=== PATIENT | female | born 1960 | race Caucasian/White ===

== ENCOUNTER 2018-04-22 15:11 | Observation (INO) ==
[2018-04-22] MEDS ORDERED: 0.9 % Sodium Chloride 500 ML IVC ONE (15:21)
[2018-04-22] MEDS ORDERED: Aspirin 81 MG TAB.CHEW PO ONE (15:21)
--- NOTE | 2018-04-22 15:35 | Emergency Department Note ---
Disposition Clinical Impression: Chest pain, Pulmonary nodules Disposition: Admitted As Inpatient Condition: Fair Chest Pain HPI - General Stated Complaint: CP Time Seen by Provider: 04/22/18 15:14 Source: patient, EMS Limitations: no limitations Vital Signs Reviewed: Yes Nursing Notes Reviewed: Yes - History of Present Illness HPI Narrative: 50-year-old female presents from home via EMS for evaluation of chest pain. Onset 9am this AM; appx 6hrs prior to arrival. Described as subxiphoid, dull, heaviness. Nonradiating. Associated with intermittent dyspnea. She had similar symptoms "years" ago with no subsequent cardiac etiology on workup at that time. PMH: Hypertension, hyperlipidemia, diabetes type 2 on metformin. Patient notes she is been noncompliant with her medications she has not seen a physician for quite some time secondary to lack of insurance. She also notes that she is under increased stress between her own health as well as caring for her mother who has recently become ill. ROS: Excellent positive: As above Negative: Fever, chills, nausea, vomiting, diaphoresis, unusual back pain, numbness/weakness/heaviness of any extremities. Severity scale (1-10): 8 - Related Data Home Medications Medication Instructions Recorded Confirmed No Known Home Drugs 04/22/18 04/22/18 Allergies Allergy/AdvReac Type Severity Reaction Status Date / Time No Known Allergies Allergy Verified 03/11/18 10:30 Chest Pain PMH - Past Medical History Medical history: Reports: diabetes, GERD, hyperlipidemia, hypertension - Social History Smoking Status: Current every day smoker Alcohol use: Reports: none Drug use: Reports: none Physical Exam - General Limitations: no limitations General appearance: alert, in no apparent distress Course Course Narrative: EKG dated 04/22/2018 at 15:16 interpreted as sinus rhythm with rate of 82. VT 160. QRS 98. QTC 435. Normal axis. Nonspecific ST-T changes. 1 mm Q waves present in leads 2, 3, aVF. Compared to previous EKG dated 05/31/20 showing no acute ischemic changes in comparison. 25 point systolic difference in BP of UE. Will CTA chest for evaluation of potential dissection. Patient's symptoms improved from 8-9/10 to 3/10 after single SL nitroglycerin. EKG shows no acute ischemic changes. Chest x-ray is unremarkable. Serum hematology is unremarkable. Serum chemistries unremarkable; initial troponin is normal. Discussed the above the admitting hospitalist who agrees to set the patient her chest pain rule out ACS. CT chest unremarkable for PE or aortic abnormalities. Multiple nodules were noted. Patient had a regarding for this time; I was unable to discuss these nodules with her. Chest X-Ray 04/22/18 15:21 IMPRESSION: No acute process. D/ / 04/22/2018 17:25:10 Jorge Short MD / Caroline Angeles Interpreting Provider: Jorge Short MD Chest CTA 04/22/18 16:17 IMPRESSION: No findings diagnostic of pulmonary embolus. Detail is limited due to suboptimal timing of the bolus and artifact. Multiple calcified granuloma are noted. Numerous additional small noncalcified nodules are also noted. These are likely noncalcified granulomas. However, follow-up is recommended. CT chest in 6-12 months is recommended. RECOMMENDATIONS: Fleischner Society guidelines for follow-up and management of incidentally detected pulmonary nodules: Single Solid Nodule: Nodule size less than 6 mm In a low-risk patient, no routine follow-up. In a high-risk patient, optional CT at 12 months. Nodule size equals 6-8 mm In a low-risk patient, CT at 6-12 months, then consider CT at 18-24 months. In a high-risk patient, CT at 6-12 months, then CT at 18-24 months. Nodule size greater than 8 mm In a low-risk patient, consider CT at 3 months, PET/CT, or tissue sampling. In a high-risk patient, consider CT at 3 months, PET/CT, or tissue sampling. Multiple Solid Nodules: Nodule size less than 6 mm In a low-risk patient, no routine follow-up. In a high-risk patient, optional CT at 12 months. Nodule size equals 6-8 mm In a low-risk patient, CT at 3-6 months, then consider CT at 18-24 months. In a high-risk patient, CT at 3-6 months, then CT at 18-24 months. Nodule size greater than 8 mm In a low-risk patient, CT at 3-6 months, then consider CT at 18-24 months. In a high-risk patient, CT at 3-6 months, then CT at 18-24 months. - Low risk patients include individuals with minimal or absent history of smoking and other known risk factors. - High risk patients include individuals with a history or smoking or known risk factors. Radiology 2017 http://pubs.rsna.org/doi/full/10.1148/radiol.9264840791 D/ / Jeremías Dietrich / Jeremías Dietrich Interpreting Provider: Jeremías Dietrich Vital Signs Temperature 98.3 F 04/22/18 15:16 Pulse Rate 85 04/22/18 15:16 Respiratory Rate 18 04/22/18 15:16 Blood Pressure 155/94 04/22/18 15:16 O2 Sat by Pulse Oximetry 97 04/22/18 15:16 Temperature 97.9 F 04/22/18 19:14 Pulse Rate 73 04/22/18 19:14 Respiratory Rate 16 04/22/18 19:14 Blood Pressure 151/83 04/22/18 19:14 O2 Sat by Pulse Oximetry 96 04/22/18 19:14 Oxygen Delivery Oxygen Delivery Room Air Chest Pain - Lab Data Result diagrams: 04/22/18 15:31 04/22/18 15:31 Lab Results 04/22/18 04/22/18 04/22/18 Range/Units 15:21 15:31 15:31 WBC 6.0 (4.3-11.1) K/mcL RBC 5.21 H (3.82-4.97) M/mcL Hgb 15.5 H (11.5-15.4) g/dL Hct 46.0 H (35.3-44.9) % MCV 88.3 (83.0-100.0) fL MCH 29.8 (28.0-33.3) pg MCHC 33.7 (31.6-35.5) g/dL RDW 12.3 (11.5-14.5) % Plt Count 218 (140-400) K/mcL MPV 9.8 (9.4-12.4) fL Immature Gran % 0.2 (0-4) % Seg Neutrophils % 50.1 % Lymphocytes % 41.5 % Monocytes % 6.0 % Eosinophils % 1.7 % Basophils % 0.5 % Neutrophils # 3.0 (1.6-8.9) K/mcL Lymphocytes # 2.5 (0.6-4.6) K/mcL Monocytes # 0.4 (0.0-1.3) K/mcL Eosinophils # 0.1 (0.0-0.6) K/mcL Basophils # 0.0 (0.0-0.2) K/mcL PT 10.2 (9.4-12.1) Seconds INR 0.9 APTT 30.8 (26.0-36.0) Seconds Sodium 135 L (136-145) mEq/L Potassium 3.9 (3.5-5.1) mEq/L Chloride 102 (98-107) mEq/L Carbon Dioxide 28 (23-29) mEq/L BUN 12 (6-20) mg/dL Creatinine 0.67 (0.60-1.20) mg/dL Est GFR ( Amer) > 60 (> 60) Est GFR (Non-Af Amer) > 60 (> 60) BUN/Creatinine Ratio 18 (6-26) Glucose 210 H (70-105) mg/dL Calculated Osmolality 286 (280-300) Calcium 9.4 (8.6-10.3) mg/dL Total Bilirubin 0.4 (0.3-1.0) mg/dL Direct Bilirubin 0.1 (0.0-0.2) mg/dL Indirect Bilirubin 0.3 (0.0-1.2) mg/dL AST 12 L (13-39) Units/L ALT 12 (7-52) Units/L Alkaline Phosphatase 69 (34-104) Units/L Troponin I < 0.03 (< 0.04) ng/mL Serum Total Protein 6.4 (6.4-8.9) g/dL Albumin 3.8 (3.5-5.7) g/dL Globulin 2.6 (2.4-3.5) g/dL Albumin/Globulin Ratio 1.5 (1.1-2.2) Lipase 18 (11-82) Units/L Heart Score - Score History: Moderately Suspicious EKG: Normal Age: 45-65 Risk Factors: Equal/Greater than 3 risk factor or history of atherosclerotic disease Troponin: Less than normal limit HEART Score Total: 4 Attestation Statement - Attestation Attestation: I, Al Hennessy DO, examined this patient [id number] and my medical decision-making was reviewed with Dr. Gordy Cordero, Resident Physician. I agree with the documented findings, disposition and treatment plan as described except to the extent set forth below. Please see my progress notes for details.
--- NOTE | 2018-04-22 15:35 | Emergency Department Note ---
Disposition Clinical Impression: Chest pain Disposition: Admitted As Inpatient Condition: Fair Time of Disposition: 18:37 General Adult HPI - General Chief complaint: ED Chest Pain Stated complaint: CP Time Seen by Provider: 04/22/18 15:14 Source: patient, EMS Limitations: no limitations - History of Present Illness Pain Scale: 8 - Related Data Home Medications Medication Instructions Recorded Confirmed No Known Home Drugs 04/22/18 04/22/18 Allergies Allergy/AdvReac Type Severity Reaction Status Date / Time No Known Allergies Allergy Verified 03/11/18 10:30 Past Medical History - Past Medical History Medical history: Reports: diabetes, GERD, hyperlipidemia, hypertension - Social History Smoking Status: Current every day smoker Smokeless Tobacco Status: No Alcohol use: Reports: none Drug use: Reports: none Physical Exam - General Limitations: no limitations General appearance: alert, in no apparent distress Course Vital Signs Temperature 98.3 F 04/22/18 15:16 Pulse Rate 85 04/22/18 15:16 Respiratory Rate 18 04/22/18 15:16 Blood Pressure 155/94 04/22/18 15:16 O2 Sat by Pulse Oximetry 97 04/22/18 15:16 Temperature 98.3 F 04/22/18 15:16 Pulse Rate 75 04/22/18 17:15 Respiratory Rate 18 04/22/18 15:56 Blood Pressure 123/74 04/22/18 16:01 O2 Sat by Pulse Oximetry 99 04/22/18 17:15 Oxygen Delivery Oxygen Delivery Room Air Medical Decision Making - Lab Data Result diagrams: 04/22/18 15:31 04/22/18 15:31 Lab Results 04/22/18 04/22/18 04/22/18 Range/Units 15:21 15:31 15:31 WBC 6.0 (4.3-11.1) K/mcL RBC 5.21 H (3.82-4.97) M/mcL Hgb 15.5 H (11.5-15.4) g/dL Hct 46.0 H (35.3-44.9) % MCV 88.3 (83.0-100.0) fL MCH 29.8 (28.0-33.3) pg MCHC 33.7 (31.6-35.5) g/dL RDW 12.3 (11.5-14.5) % Plt Count 218 (140-400) K/mcL MPV 9.8 (9.4-12.4) fL Immature Gran % 0.2 (0-4) % Seg Neutrophils % 50.1 % Lymphocytes % 41.5 % Monocytes % 6.0 % Eosinophils % 1.7 % Basophils % 0.5 % Neutrophils # 3.0 (1.6-8.9) K/mcL Lymphocytes # 2.5 (0.6-4.6) K/mcL Monocytes # 0.4 (0.0-1.3) K/mcL Eosinophils # 0.1 (0.0-0.6) K/mcL Basophils # 0.0 (0.0-0.2) K/mcL PT 10.2 (9.4-12.1) Seconds INR 0.9 APTT 30.8 (26.0-36.0) Seconds Sodium 135 L (136-145) mEq/L Potassium 3.9 (3.5-5.1) mEq/L Chloride 102 (98-107) mEq/L Carbon Dioxide 28 (23-29) mEq/L BUN 12 (6-20) mg/dL Creatinine 0.67 (0.60-1.20) mg/dL Est GFR ( Amer) > 60 (> 60) Est GFR (Non-Af Amer) > 60 (> 60) BUN/Creatinine Ratio 18 (6-26) Glucose 210 H (70-105) mg/dL Calculated Osmolality 286 (280-300) Calcium 9.4 (8.6-10.3) mg/dL Total Bilirubin 0.4 (0.3-1.0) mg/dL Direct Bilirubin 0.1 (0.0-0.2) mg/dL Indirect Bilirubin 0.3 (0.0-1.2) mg/dL AST 12 L (13-39) Units/L ALT 12 (7-52) Units/L Alkaline Phosphatase 69 (34-104) Units/L Troponin I < 0.03 (< 0.04) ng/mL Serum Total Protein 6.4 (6.4-8.9) g/dL Albumin 3.8 (3.5-5.7) g/dL Globulin 2.6 (2.4-3.5) g/dL Albumin/Globulin Ratio 1.5 (1.1-2.2) Lipase 18 (11-82) Units/L Attestation Statement - Attestation Attestation: I, Al Hennessy DO, examined this patient [id number] and my medical decision-making was reviewed with Dr. Gordy Cordero, Resident Physician. I agree with the documented findings, disposition and treatment plan as described except to the extent set forth below. Please see my progress notes for details. 52-year-old female presents emergency room for evaluation of chest pain. Patient woke up this morning with pain and numbness in the subxiphoid region of the epigastrium. She denies any falls trauma or injury. She has not had symptoms of been persistent like this ever in the past. She has no specific cardiac history according to her. Currently she is denying fevers chills nausea vomiting diarrhea headache vision changes. She does have intermittent chest discomfort and pain that has not been persistent since this morning. Denies any shortness of breath. Patient has not started any new medications. She has not traveled outside the country. She has not had any traumas injuries or falls. On initial presentation the patient does not appear to be any specific distress. Her vital signs are stable. She is resting comfortably in the bed she is alert she is oriented she speaks in full sentences. Her lungs are clear her heart is regular abdomen is soft nontender nondistended with no guarding no rigidity and no peritoneal symptoms. She has no point tenderness in the right upper quadrant or left upper quadrant of the abdomen. No epigastric discomfort. Patient does have swelling in the right lower extremities is asymmetric to the left but they treated this secondary to chronic knee related issues and this has been present for months. Patient has been under a great deal of stress with family related issues and initially she thought that could have been the source of the symptoms here today but it stayed and did not go away so she became concerned and decided to come to the emergency room for evaluation. Patient denies any history of cardiac disease, stenting, blood thinners. She does take several medications at home. She is otherwise asymptomatic prior to the events today. Detailed workup including CBC chemistry troponin and BNP coagulation studies were restarted this time. Aspirin nitroglycerin will be given. Chest x-ray and BNP along with urinalysis will also be resulted. Patient is otherwise clinically stable at t his time. Disposition to be determined. Clinical suspicion is that the patient will require admission will monitor closely and then determine disposition plan. Heart score is a 3 at this time based on age risk factors and presenting symptoms and complaint. See detailed documentation the physical exam, medical intervention, medical decision-making and disposition the resident physician's note. 1615 Patient is asymptomatic after 2 nitroglycerin. She does have a pulse deficit between the right upper and left upper extremities. Patient will have CT angiography the chest to rule out any vascular abnormalities or could be attributed to the symptoms here today and admission process will be established. Patient is otherwise asymptomatic at this point with stable labs 1800 CT angios the chest is unremarkable for vascular related etiology including dissection and aneurysm or pulmonary emboli. Patient will be admitted at this time for continuation of care of anginal-like presentation but responded nitroglycerin. Aspirin is at a been provided. Patient has been asymptomatic here in the emergency room. Patient will be admitted for continuation of care. Patient was accepted by the hospitalist Dr. huitron. No other recommendations or concerns noted this time. Patient is otherwise clinically stable to time of admission.
[2018-04-22] MEDS: Nitroglycerin 0.4 MG TAB.SUBL SL ONE ×2 (15:51→15:56)
[2018-04-22 15:55] LABS: Basophils % 0.5 %; Eosinophils # 0.1 K/mcL (0.0-0.6); Eosinophils % 1.7 %; Hemoglobin 15.5 g/dL (11.5-15.4); Immature Granulocytes % 0.2 % (0-4); Lymphocytes # 2.5 K/mcL (0.6-4.6); Lymphocytes % 41.5 %; Mean Corpuscular HGB Conc 33.7 g/dL (31.6-35.5); Mean Corpuscular Hemoglobin 29.8 pg (28.0-33.3); Mean Corpuscular Volume 88.3 fL (83.0-100.0); Mean Platelet Volume 9.8 fL (9.4-12.4); Monocytes # 0.4 K/mcL (0.0-1.3); Platelet Count 218 K/mcL (140-400); Red Blood Count 5.21 M/mcL (3.82-4.97); Red Cell Distribution Width 12.3 % (11.5-14.5); Segmented Neutrophils % 50.1 %
[2018-04-22 16:03] LABS: INR 0.9; Prothrombin Time 10.2 Seconds (9.4-12.1)
[2018-04-22 16:05] LABS: Activated Partial Thrombo Time 30.8 Seconds (26.0-36.0)
[2018-04-22] MEDS ORDERED: *HR* HYDROmorphone (PF) 1 MG/ML SYRINGE IVP ONE (16:08)
[2018-04-22] MEDS ORDERED: Isovue-370 500 ML INFUS..BTL IV ONE (16:17)
[2018-04-22 16:24] LABS: Alanine Aminotransferase 12 Units/L (7-52); Albumin 3.8 g/dL (3.5-5.7); Albumin/Globulin Ratio 1.5 (1.1-2.2); Alkaline Phosphatase 69 Units/L (34-104); Aspartate Amino Transferase 12 Units/L (13-39); BUN/Creatinine Ratio 18 (6-26); Bilirubin,Direct 0.1 mg/dL (0.0-0.2); Bilirubin,Indirect 0.3 mg/dL (0.0-1.2); Bilirubin,Total 0.4 mg/dL (0.3-1.0); Blood Urea Nitrogen 12 mg/dL (6-20); Calcium 9.4 mg/dL (8.6-10.3); Carbon Dioxide 28 mEq/L (23-29); Chloride 102 mEq/L (98-107); Globulin 2.6 g/dL (2.4-3.5); Glucose 210 mg/dL (70-105); Lipase 18 Units/L (11-82); Osmolality,Calculated 286 (280-300); Potassium 3.9 mEq/L (3.5-5.1); Sodium 135 mEq/L (136-145); Total Protein 6.4 g/dL (6.4-8.9); eGFR For Non-African Americans > 60 (> 60)
[2018-04-22 16:32] LABS: Troponin I < 0.03 ng/mL (< 0.04)
--- NOTE | 2018-04-22 16:57 | Internal Med History&Physical ---
<Guanakito Duke - Last Filed: 04/22/18 18:56> Date of Encounter: 04/22/18 Time of Encounter: 18:00 Internal Medicine - H&P: HPI Chief complaint: chest pain Admitted From: Emergency Dept Plans for Post Hospital Care: Home History of present illness: Ms. Paz is a 58 year old female with pmh significant for HTN, HLD, DM, current 1ppd smoker and GERD who arrived to the ED via EMS with chest pain. She describes the pain as a dull heaviness in the subxiphoid that is nonradiating and began this morning ~9am. Additionally with mild dyspnea unchanged with exertion. Symptoms improved after single sl nitro. She had similar episode years ago that was not found to be cardiac in origin during workup. She admitted to R leg pain and edema LE R>L and asymmetry in size for number of years since prior R knee surgery. She denied diplopia, blurry vision, dizzy/lightheaded, diaphoresis, pleuritic chest pain, N/V, abdominal pain, syncope hx of stents or dvt but admitted to using 2-3 pillows at night for orthopnea. She was found to have asymmetric BP in ED with 25 point difference. She states she has been under lots of stress caring for mother and has not seen pcp in over a year due to loss of insurance. Additionally, has not taken any of her previous rx due to no insurance in 1 year. Past Med Surg Social Fam HX - Past Medical History Medical history: diabetes, GERD, hyperlipidemia, hypertension - Past Surgical History Surgical History: cholecystectomy - Social History Smoking Status: Current every day smoker Smokeless Tobacco Status: No Alcohol use: none Drug use: none Internal Medicine - H&P: Meds No Known Home Drugs 04/22/18 [History] Allergy/AdvReac Type Severity Reaction Status Date / Time No Known Allergies Allergy Verified 03/11/18 10:30 All Systems PM: A 10-system review of systems was performed and is negative for pertinent findings except as documented above in the HPI. - Constitutional Constitutional: no chills, no fever(s) - EENT Eyes: no blurry vision, no diplopia Nose, mouth and throat: no nasal congestion, no sore throat - Cardiovascular Cardiovascular ROS IM: chest pain, dyspnea, edema, orthopnea, no claudication, no diaphoresis, no dyspnea on exertion, no irregular heart rhythm, no lightheadedness, no palpitations, no syncope - Respiratory Respiratory: cough, dyspnea, no dyspnea on exertion - Gastrointestinal Gastrointestinal: heartburn, no abdominal pain, no constipation, no diarrhea, no nausea, no vomiting - Musculoskeletal Musculoskeletal ROS IM: no back pain, no neck pain - Integumentary Integumentary IM: no erythema, no rash, no jaundice - Neurological Neurological ROS: no dizziness, no headache(s), no numbness, no paresthesias, no vertigo, no weakness - Psychiatric Psychiatric: anxiety - Constitutional Vitals: Temp Pulse Resp BP Pulse Ox 98.3 F 88 18 123/74 97 04/22/18 15:16 04/22/18 16:01 04/22/18 15:56 04/22/18 16:01 04/22/18 15:56 General appearance: Present: pleasant, obese. Absent: no acute distress Exam: Comfortable in bed - Head Head exam: Present: atraumatic, normal inspection, normocephalic - Eye Eye exam: Present: EOMI, normal appearance - ENT ENT exam: Present: mucous membranes moist - Neck Neck exam general surgery: Present: normal inspection, trachea midline - Respiratory Respiratory exam: Present: prolonged expiratory phase, rhonchi, wheezes. Absent: accessory muscle use, chest wall tenderness, respiratory distress - Cardiovascular Cardiovascular exam: Present: RRR, +S1, +S2. Absent: diastolic murmur, irregular rhythm, systolic murmur - GI/Abdominal GI/Abdominal exam: Present: soft. Absent: distended, firm, guarding, hepatom egaly, rebound, rigid, splenomegaly, tenderness - Extremities Exam Extremities exam: Present: normal capillary refill, pedal edema (2+ R>L), warm, radial pulses palpable and symmetrical. Absent: calf tenderness, cyanotic, normal inspection (R lower leg larger than L lower leg) - Neurological Exam Neurological exam: Present: alert, CN II-XII intact, oriented X3. Absent: speech deficit - Psychiatric Psychiatric exam: Present: normal affect, normal mood - Skin Skin exam: Present: dry, intact, normal color. Absent: abrasion, cyanosis, diap horetic, erythema, excoriation, pallor, rash Internal Med - H&P Results - Labs CBC & Chem 7: 04/22/18 15:31 04/22/18 15:31 Labs: Short CBC 04/22/18 Range/Units 15:31 WBC 6.0 (4.3-11.1) K/mcL Hgb 15.5 H (11.5-15.4) g/dL Hct 46.0 H (35.3-44.9) % Plt Count 218 (140-400) K/mcL Neutrophils # 3.0 (1.6-8.9) K/mcL BMP 04/22/18 15:31 Sodium 135 L Potassium 3.9 Chloride 102 Carbon Dioxide 28 BUN 12 Creatinine 0.67 Glucose 210 H Calcium 9.4 Cardiac Enzymes 04/22/18 Range/Units 15:31 Troponin I < 0.03 (< 0.04) ng/mL Liver Function 04/22/18 Range/Units 15:31 Total Bilirubin 0.4 (0.3-1.0) mg/dL Direct Bilirubin 0.1 (0.0-0.2) mg/dL AST 12 L (13-39) Units/L ALT 12 (7-52) Units/L Alkaline Phosphatase 69 (34-104) Units/L Albumin 3.8 (3.5-5.7) g/dL - Impressions ITS Impressions Chest X-Ray 04/22/18 15:21 IMPRESSION: No acute process. D/ / Jorge Short MD / Jorge Short MD Interpreting Provider: Jorge Short MD - Assessment and plan (1) Chest pain Current Visit: Yes Status: Acute Assessment and plan: Dull/heavy subxiphoid chest pain without radiation or associated symptoms that began 04/22/18 and was constant. Pain resolved with 1 sl nitro. Had previous cardiac workup "years" ago that was found to be not cardiac in origin. She has asymmetric leg pain/swelling R>L without prior DVT. -With her multiple risk factors cardiac origin is possible but I do not think it is cardiac at this point but will continue workup. -HEART score 4 -ECG in ED without acute st elevations/depressions, or t wave inversions -Initial troponin in ED neg will trend 2 additional. -Asa in ED, will continue asa and statin ordered -CXR neg -CTA neg for PE -Will get lipids, a1c, and ecg in the am -Will consider cards consult if pending orders indicate cardiac origin Qualifiers: Chest pain type: other chest pain Qualified Code(s): R07.89 - Other chest pain; R07.8 - Other chest pain (2) Leg swelling Current Visit: Yes Status: Acute Assessment and plan: Prior R knee operations and had increased pain and swelling of R LE > L LE -Asymmetric in size on exam R>L -No hx of DVT but multiple risk factors -Will get R LE doppler to ro DVT (3) Hypertension Current Visit: Yes Status: Acute Assessment and plan: Hx of HTN -Not on antihypertensives at home -BP 155/94 on arrival, 123/74 most recent -Will monitor Qualifiers: Hypertension type: essential hypertension Qualified Code(s): I10 - Essential (primary) hypertension (4) Diabetes mellitus Current Visit: Yes Status: Acute Assessment and plan: Hx of DM -No home meds currently. -Was previously on metformin. -Insulin naive. -Glucose on arrival 210 -a1c pending in am -Will start low SSI and monitor glucose Qualifiers: Diabetes mellitus type: type 2 Diabetes mellitus terminal operations supervisor insulin use: without terminal operations supervisor use Diabetes mellitus complication status: with unspecified complications Qualified Code(s): E11.8 - Type 2 diabetes mellitus with un specified complications (5) Asymmetric blood pressures Current Visit: Yes Status: Acute Assessment and plan: Reported asymmetric BP in ED of 25 points. -Will recheck tonight. -CTA without abnormalities in ascending aorta, no aneurysm, dissection (6) GERD (gastroesophageal reflux disease) Current Visit: Yes Status: Acute Assessment and plan: Hx of GERD. Not on meds at this time. Qualifiers: Esophagitis presence: esophagitis presence not specified Qualified Code(s): K21.9 - Gastro-esophageal reflux disease without esophagitis (7) Tobacco abuse Current Visit: Yes Status: Acute Assessment and plan: 1ppd smoker -Recommend cessation at dc (8) DVT prophylaxis Current Visit: Yes Status: Acute Assessment and plan: Subq heparin - Time Spent With Patient Total time spent is greater than 50% in coordination of care (as documented) at patient's floor/unit and/or counseling patient: <Ilana Aguirre - Last Filed: 04/22/18 19:48> Internal Medicine - H&P: HPI History of present illness: Ms. Paz is a 58 year old female Past Med Surg Social Fam HX - Additional Family History Additional family history: family history reviewed and non contributory All Systems PM: A 10-system review of systems was performed and is negative for pertinent findings except as documented above in the HPI. - Constitutional Vitals: Temp Pulse Resp BP Pulse Ox 98.3 F 75 18 123/74 99 04/22/18 15:16 04/22/18 17:15 04/22/18 15:56 04/22/18 16:01 04/22/18 17:15 Internal Med - H&P Results - Labs CBC & Chem 7: 04/22/18 15:31 04/22/18 15:31 Labs: Short CBC 04/22/18 Range/Units 15:31 WBC 6.0 (4.3-11.1) K/mcL Hgb 15.5 H (11.5-15.4) g/dL Hct 46.0 H (35.3-44.9) % Plt Count 218 (140-400) K/mcL Neutrophils # 3.0 (1.6-8.9) K/mcL BMP 04/22/18 15:31 Sodium 135 L Potassium 3.9 Chloride 102 Carbon Dioxide 28 BUN 12 Creatinine 0.67 Glucose 210 H Calcium 9.4 Cardiac Enzymes 04/22/18 Range/Units 15:31 Troponin I < 0.03 (< 0.04) ng/mL Liver Function 04/22/18 Range/Units 15:31 Total Bilirubin 0.4 (0.3-1.0) mg/dL Direct Bilirubin 0.1 (0.0-0.2) mg/dL AST 12 L (13-39) Units/L ALT 12 (7-52) Units/L Alkaline Phosphatase 69 (34-104) Units/L Albumin 3.8 (3.5-5.7) g/dL - Impressions ITS Impressions Chest X-Ray 04/22/18 15:21 IMPRESSION: No acute process. D/ / 04/22/2018 17:25:10 Jorge Short MD / Caroline Angeles Interpreting Provider: Jorge Short MD Chest CTA 04/22/18 16:17 IMPRESSION: No findings diagnostic of pulmonary embolus. Detail is limited due to suboptimal timing of the bolus and artifact. Multiple calcified granuloma are noted. Numerous additional small noncalcified nodules are also noted. These are likely noncalcified granulomas. However, follow-up is recommended. CT chest in 6-12 months is recommended. RECOMMENDATIONS: Fleischner Society guidelines for follow-up and management of incidentally detected pulmonary nodules: Single Solid Nodule: Nodule size less than 6 mm In a low-risk patient, no routine follow-up. In a high-risk patient, optional CT at 12 months. Nodule size equals 6-8 mm In a low-risk patient, CT at 6-12 months, then consider CT at 18-24 months. In a high-risk patient, CT at 6-12 months, then CT at 18-24 months. Nodule size greater than 8 mm In a low-risk patient, consider CT at 3 months, PET/CT, or tissue sampling. In a high-risk patient, consider CT at 3 months, PET/CT, or tissue sampling. Multiple Solid Nodules: Nodule size less than 6 mm In a low-risk patient, no routine follow-up. In a high-risk patient, optional CT at 12 months. Nodule size equals 6-8 mm In a low-risk patient, CT at 3-6 months, then consider CT at 18-24 months. In a high-risk patient, CT at 3-6 months, then CT at 18-24 months. Nodule size greater than 8 mm In a low-risk patient, CT at 3-6 months, then consider CT at 18-24 months. In a high-risk patient, CT at 3-6 months, then CT at 18-24 months. - Low risk patients include individuals with minimal or absent history of smoking and other known risk factors. - High risk patients include individuals with a history or smoking or known risk factors. Radiology 2017 http://pubs.rsna.org/doi/full/10.1148/radiol.[email or web address] D/ / Jeremías Dietrich / Jeremías Dietrich Interpreting Provider: Jeremías Dietrich - Assessment and plan (1) Chest pain Current Visit: Yes Status: Acute Qualifiers: Chest pain type: other chest pain Qualified Code(s): R07.89 - Other chest p ain; R07.8 - Other chest pain (2) GERD (gastroesophageal reflux disease) Current Visit: Yes Status: Acute Qualifiers: Esophagitis presence: esophagitis presence not specified Qualified Code(s): K21.9 - Gastro-esophageal reflux disease without esophagitis (3) Hypertension Current Visit: Yes Status: Acute Qualifiers: Hypertension type: essential hypertension Qualified Code(s): I10 - Essential (primary) hypertension (4) Tobacco abuse Current Visit: Yes Status: Acute (5) Diabetes mellitus Current Visit: Yes Status: Acute Qualifiers: Diabetes mellitus type: type 2 Diabetes mellitus care home insulin use: without care home use Diabetes mellitus complication status: with unspecified complications Qualified Code(s): E11.8 - Type 2 diabetes mellitus with unspecified complications (6) DVT prophylaxis Current Visit: Yes Status: Acute (7) Leg swelling Current Visit: Yes Status: Acute (8) Asymmetric blood pressures Current Visit: Yes Status: Acute - Time Spent With Patient Total time spent is greater than 50% in coordination of care (as documented) at patient's floor/unit and/or counseling patient: - Attending Attestation I examined this patient and my medical decision-making was reviewed with the Resident Physician Dr Duke. I agree with the documented findings, disposition and treatment plan as described except to the extent set forth below/addl details below. Pt presented with subxiphoid chest pain that resolved with nitro. No radiation of pain to substernal, neck, jaw, back, shoulder blades. She is resting comfortably. No associated sob, nausea or emesis. She denies any lightheadedness, dizziness, syncope. She has had R knee pain and is s/p ligamental tears and repair inthat knee with edema in the leg which she notes to occur at times. No recent immobilization, calf pain or hx of clots. ED recorded unequal pressures in the arms and unequal pulses. CTA chest was done and neg for PE. No comment regarding aorta. I contacted radiology via phone and discussed with Dr Dietrich. Ascending aorta normal, no aneurysm, no dissection. trops neg, ekg without acute ischemic changes, VSS. gen- alert, awake,appears stated age eyes- pupils equal round cv- reg rate and rhythm, normal s1,s2, no murmurs appreciated, no pitting le edema, r leg size increased form left, no jvd, radial pulses are 2+ reg and equal lungs- ctabl, no wheezing, rhonchi or crackles, norm resp effort on room air abd- soft, non tender, non distended, + bs neuro- AAOx3, CN grossly intact, chest pain, atypical, rule out acs, no pe or dissection on CTA, CXR neg- tele, trop trend,serial ekgs, asa + statin, check lipids, a1c, would consider cards consult if any abnormalities on overnight work up dm on metformin reviously - check a1c, ssi In regards to documented unequal bps and pulses- on my exam pulses are normal, will have nursing recheck bps on floor, but I personally discussed imaging with Dr Tarango of [facility] and there is no evidence of aorta abnormality including dissection and pt is not reporting pain location c/w such
[2018-04-22] MEDS ORDERED: Ondansetron 4 MG/2 ML VIAL IVP PRN (17:05)
[2018-04-22] MEDS ORDERED: Nitroglycerin 0.4 MG TAB.SUBL SL PRN (17:05)
[2018-04-22] MEDS ORDERED: *HR* Dextrose 50 % in Water (Syg) 50 ML SYRINGE IVP PRN (17:15)
[2018-04-22] MEDS ORDERED: D5% in Water 1,000 ML IVC PRN (17:15)
[2018-04-22] MEDS ORDERED: Dextrose Gel 15 GM/37.5 ML TUBE PO PRN ×2 (17:15)
[2018-04-22] MEDS: Insulin LISPRO 300 UNITS/3 ML VIAL SQ SCH ×2 (19:51→20:25)
[2018-04-22] MEDS: *HR* Heparin 5,000 UNIT/ML VIAL SQ SCH (20:11)
[2018-04-22] MEDS ORDERED: Insulin DETEMIR 100 UNIT/ML X5UNITS SQ SCH (21:00)
[2018-04-23 03:53] LABS: Basophils % 0.6 %; Eosinophils # 0.1 K/mcL (0.0-0.6); Eosinophils % 2.5 %; Hematocrit 47.3 % (35.3-44.9); Hemoglobin 15.9 g/dL (11.5-15.4); Lymphocytes # 2.7 K/mcL (0.6-4.6); Lymphocytes % 50.9 %; Mean Corpuscular HGB Conc 33.6 g/dL (31.6-35.5); Mean Corpuscular Hemoglobin 29.8 pg (28.0-33.3); Mean Corpuscular Volume 88.6 fL (83.0-100.0); Mean Platelet Volume 9.8 fL (9.4-12.4); Monocytes # 0.3 K/mcL (0.0-1.3); Monocytes % 5.5 %; Neutrophils # 2.2 K/mcL (1.6-8.9); Platelet Count 212 K/mcL (140-400); Red Blood Count 5.34 M/mcL (3.82-4.97); Red Cell Distribution Width 12.6 % (11.5-14.5); Segmented Neutrophils % 40.5 %
[2018-04-23 04:13] LABS: Chol/HDL Ratio 5.5 (0-4.9)
[2018-04-23 04:16] LABS: BUN/Creatinine Ratio 19 (6-26); Blood Urea Nitrogen 11 mg/dL (6-20); Calcium 9.5 mg/dL (8.6-10.3); Carbon Dioxide 26 mEq/L (23-29); Chloride 106 mEq/L (98-107); Glucose 156 mg/dL (70-105); Osmolality,Calculated 287 (280-300); Potassium 4.1 mEq/L (3.5-5.1); Sodium 137 mEq/L (136-145); eGFR For Non-African Americans > 60 (> 60)
[2018-04-23] MEDS: *HR* Heparin 5,000 UNIT/ML VIAL SQ SCH ×2 (05:49→17:42)
[2018-04-23 06:44] LABS: Estimated Average Glucose 197 mg/dl; Hemoglobin A1C 8.5 %
[2018-04-23] MEDS: Aspirin 81 MG TAB.CHEW PO SCH (09:12)
[2018-04-23] MEDS: Insulin LISPRO 300 UNITS/3 ML VIAL SQ SCH ×4 (09:12→21:02)
[2018-04-23] MEDS ORDERED: Regadenoson 0.4 MG/5 ML SYRINGE IVP ONE (09:35)
--- NOTE | 2018-04-23 13:15 | Internal Med Progress Note ---
<Guanakito Duke - Last Filed: 04/23/18 13:10> Hospitalist Progress Note - Encounter Date of Encounter: 04/23/18 Time of Encounter: 08:00 - Subjective Interval History: No symptoms overnight. Denies chest pain, sob, diaphoresis, N/V. - Exam Vitals: Temp Pulse Resp BP Pulse Ox 98.1 F 99 16 145/84 97 04/23/18 11:26 04/23/18 11:26 04/23/18 11:26 04/23/18 11:26 04/23/18 11:26 Exam: General: Alert, obese, no signs of acute distress or toxicity HEENT: Atraumatic, normocephalic, EOMi, mucus membranes moist Neck: Trachea midline Chest: Symmetric chest rise, nontender Cardiac: RRR, S1/S2+, no murmurs, rubs, gallops appreciated, 2+ R>L LE edema, radial pulses 2+ and symmetric Resp: Decreased air movement, scattered rhonchi and exp wheezing Abdomen: Soft, non tender, non distended, no guarding, rigidity, or rebound tenderness Extremities: normal inspection, tender to palpation R infrapatellar, normal cap refill Integumentary: Byng, warm, dry, intact - Assessment and Plan (1) Chest pain Current Visit: Yes Status: Acute Assessment and Plan: Dull/heavy subxiphoid chest pain without radiation or associated symptoms that began 04/22/18 and was constant. Pain resolved with 1 sl nitro. Had previous cardiac workup "years" ago that was found to be not cardiac in origin. She has asymmetric leg pain/swelling R>L without prior DVT. -With her multiple risk factors cardiac origin is possible but I do not think it is cardiac at this point but will continue workup. -HEART score 4 -ECG in ED without acute st elevations/depressions, or t wave inversions -Asa in ED, will continue asa and statin -CXR neg -CTA neg for PE -Lipids elevated, LDL 138, HDL 40, TG 204, continue statin -Troponin x3 negative -Nuclear chem stress tomorrow. If neg will dc tomorrow. -Will need statin, antihypertensive, and antihyperglycemic at dc with outpatient followup. (2) Asymmetric blood pressures Current Visit: Yes Status: Acute Assessment and Plan: Reported asymmetric BP in ED of 25 points. -CTA chest without abnormalities in ascending aorta, no aneurysm, dissection -Repeat bilat BP R 139/79, L 151/83 (3) Leg swelling Current Visit: Yes Status: Acute Assessment and Plan: Prior R knee operations and had increased pain and swelling of R LE > L LE -Asymmetric in size on exam R>L -No hx of DVT but multiple risk factors -R LE doppler neg for DVT (4) Diabetes mellitus Current Visit: Yes Status: Acute Assessment and Plan: Hx of DM -No home meds currently. -Was previously on metformin. -Insulin naive. -Glucose on arrival 210 -a1c 8.5 -Will continue low SSI and monitor glucose -Will need outpt followup at hi (5) Hypertension Current Visit: Yes Status: Acute (6) GERD (gastroesophageal reflux disease) Current Visit: Yes Status: Acute Assessment and Plan: Hx of GERD. Not on meds at this time. (7) Tobacco abuse Current Visit: Yes Status: Acute Assessment and Plan: 1ppd smoker -Recommend cessation at hi (8) DVT prophylaxis Current Visit: Yes Status: Acute Assessment and Plan: Subq heparin (9) Hyperlipemia Current Visit: Yes Status: Acute Assessment and Plan: Lipid panel LDL 138, HDL 40, TG 204, chol/HDL ratio 5.5. -Continue statin now and at hi. DVT Prophylaxis: Subq heparin - Time Spent with Patient Total time spent is greater than 50% in coordination of care (as documented) at patient's floor/unit and/or counseling patient: less than 15 minutes Plan of Care Discussed with: patient Internal Medicine: Result - Labs CBC & Chem 7: 04/23/18 03:18 04/23/18 03:18 Labs: Short CBC 04/22/18 04/23/18 Range/Units 15:31 03:18 WBC 6.0 5.3 (4.3-11.1) K/mcL Hgb 15.5 H 15.9 H (11.5-15.4) g/dL Hct 46.0 H 47.3 H (35.3-44.9) % Plt Count 218 212 (140-400) K/mcL Neutrophils # 3.0 2.2 (1.6-8.9) K/mcL BMP 04/22/18 04/23/18 15:31 03:18 Sodium 135 L 137 Potassium 3.9 4.1 Chloride 102 106 Carbon Dioxide 28 26 BUN 12 11 Creatinine 0.67 0.58 L Glucose 210 H 156 H Calcium 9.4 9.5 Cardiac Enzymes 04/22/18 04/22/18 04/23/18 Range/Units 15:31 21:11 03:18 Troponin I < 0.03 < 0.03 < 0.03 (< 0.04) ng/mL Liver Function 04/22/18 Range/Units 15:31 Total Bilirubin 0.4 (0.3-1.0) mg/dL Direct Bilirubin 0.1 (0.0-0.2) mg/dL AST 12 L (13-39) Units/L ALT 12 (7-52) Units/L Alkaline Phosphatase 69 (34-104) Units/L Albumin 3.8 (3.5-5.7) g/dL - ABG Interpretation ABG results: PT/INR, D-dimer PT 10.2 Seconds (9.4-12.1) 04/22/18 15:21 - Impressions Impressions Chest X-Ray 04/22/18 15:21 IMPRESSION: No acute process. D/ / 04/22/2018 17:25:10 Jorge Short MD / Caroline Angeles Interpreting Provider: Jorge Short MD Chest CTA 04/22/18 16:17 IMPRESSION: No findings diagnostic of pulmonary embolus. Detail is limited due to suboptimal timing of the bolus and artifact. Multiple calcified granuloma are noted. Numerous additional small noncalcified nodules are also noted. These are likely noncalcified granulomas. However, follow-up is recommended. CT chest in 6-12 months is recommended. RECOMMENDATIONS: Fleischner Society guidelines for follow-up and management of incidentally detected pulmonary nodules: Single Solid Nodule: Nodule size less than 6 mm In a low-risk patient, no routine follow-up. In a high-risk patient, optional CT at 12 months. Nodule size equals 6-8 mm In a low-risk patient, CT at 6-12 months, then consider CT at 18-24 months. In a high-risk patient, CT at 6-12 months, then CT at 18-24 months. Nodule size greater than 8 mm In a low-risk patient, consider CT at 3 months, PET/CT, or tissue sampling. In a high-risk patient, consider CT at 3 months, PET/CT, or tissue sampling. Multiple Solid Nodules: Nodule size less than 6 mm In a low-risk patient, no routine follow-up. In a high-risk patient, optional CT at 12 months. Nodule size equals 6-8 mm In a low-risk patient, CT at 3-6 months, then consider CT at 18-24 months. In a high-risk patient, CT at 3-6 months, then CT at 18-24 months. Nodule size greater than 8 mm In a low-risk patient, CT at 3-6 months, then consider CT at 18-24 months. In a high-risk patient, CT at 3-6 months, then CT at 18-24 months. - Low risk patients include individuals with minimal or absent history of smoking and other known risk factors. - High risk patients include individuals with a history or smoking or known risk factors. Radiology 2017 http://pubs.rsna.org/doi/full/10.1148/radiol.9354963113 D/ / Jeremías Dietrich / Jeremías Dietrich Interpreting Provider: Jeremías Dietrich Consult Discharge Plan - Plan Referrals: Kj Smith MD [Primary Care Provider] - <Ronak Abernathy - Last Filed: 04/23/18 13:55> Hospitalist Progress Note - Exam Vitals: Temp Pulse Resp BP Pulse Ox 98.1 F 99 16 145/84 97 04/23/18 11:26 04/23/18 11:26 04/23/18 11:26 04/23/18 11:26 04/23/18 11:26 - Assessment and Plan (1) Chest pain Current Visit: Yes Status: Suspected (2) GERD (gastroesophageal reflux disease) Current Visit: Yes Status: Chronic (3) Hypertension Current Visit: Yes Status: Chronic (4) Tobacco abuse Current Visit: Yes Status: Chronic (5) Diabetes mellitus Current Visit: Yes Status: Chronic (6) DVT prophylaxis Current Visit: Yes Status: Acute (7) Leg swelling Current Visit: Yes Status: Acute (8) Asymmetric blood pressures Current Visit: Yes Status: Acute (9) Hyperlipemia Current Visit: Yes Status: Acute (10) Morbid obesity with BMI of 45.0-49.9, adult Current Visit: Yes Status: Chronic - Time Spent with Patient Total time spent is greater than 50% in coordination of care (as documented) at patient's floor/unit and/or counseling patient: Internal Medicine: Result - Labs CBC & Chem 7: 04/23/18 03:18 04/23/18 03:18 Labs: Short CBC 04/22/18 04/23/18 Range/Units 15:31 03:18 WBC 6.0 5.3 (4.3-11.1) K/mcL Hgb 15.5 H 15.9 H (11.5-15.4) g/dL Hct 46.0 H 47.3 H (35.3-44.9) % Plt Count 218 212 (140-400) K/mcL Neutrophils # 3.0 2.2 (1.6-8.9) K/mcL BMP 04/22/18 04/23/18 15:31 03:18 Sodium 135 L 137 Potassium 3.9 4.1 Chloride 102 106 Carbon Dioxide 28 26 BUN 12 11 Creatinine 0.67 0.58 L Glucose 210 H 156 H Calcium 9.4 9.5 Cardiac Enzymes 04/22/18 04/22/18 04/23/18 Range/Units 15:31 21:11 03:18 Troponin I < 0.03 < 0.03 < 0.03 (< 0.04) ng/mL Liver Function 04/22/18 Range/Units 15:31 Total Bilirubin 0.4 (0.3-1.0) mg/dL Direct Bilirubin 0.1 (0.0-0.2) mg/dL AST 12 L (13-39) Units/L ALT 12 (7-52) Units/L Alkaline Phosphatase 69 (34-104) Units/L Albumin 3.8 (3.5-5.7) g/dL - ABG Interpretation ABG results: PT/INR, D-dimer PT 10.2 Seconds (9.4-12.1) 04/22/18 15:21 - Impressions Impressions Chest X-Ray 04/22/18 15:21 IMPRESSION: No acute process. D/ / 04/22/2018 17:25:10 Jorge Short MD / Caroline Angeles Interpreting Provider: Jorge Short MD Chest CTA 04/22/18 16:17 IMPRESSION: No findings diagnostic of pulmonary embolus. Detail is limited due to suboptimal timing of the bolus and artifact. Multiple calcified granuloma are noted. Numerous additional small noncalcified nodules are also noted. These are likely noncalcified granulomas. However, follow-up is recommended. CT chest in 6-12 months is recommended. RECOMMENDATIONS: Fleischner Society guidelines for follow-up and management of incidentally detected pulmonary nodules: Single Solid Nodule: Nodule size less than 6 mm In a low-risk patient, no routine follow-up. In a high-risk patient, optional CT at 12 months. Nodule size equals 6-8 mm In a low-risk patient, CT at 6-12 months, then consider CT at 18-24 months. In a high-risk patient, CT at 6-12 months, then CT at 18-24 months. Nodule size greater than 8 mm In a low-risk patient, consider CT at 3 months, PET/CT, or tissue sampling. In a high-risk patient, consider CT at 3 months, PET/CT, or tissue sampling. Multiple Solid Nodules: Nodule size less than 6 mm In a low-risk patient, no routine follow-up. In a high-risk patient, optional CT at 12 months. Nodule size equals 6-8 mm In a low-risk patient, CT at 3-6 months, then consider CT at 18-24 months. In a high-risk patient, CT at 3-6 months, then CT at 18-24 months. Nodule size greater than 8 mm In a low-risk patient, CT at 3-6 months, then consider CT at 18-24 months. In a high-risk patient, CT at 3-6 months, then CT at 18-24 months. - Low risk patients include individuals with minimal or absent history of smoking and other known risk factors. - High risk patients include individuals with a history or smoking or known risk factors. Radiology 2017 http://pubs.rsna.org/doi/full/10.1148/radiol.1251010701 D/ / Jeremías Dietrich / Jeremías Dietrich Interpreting Provider: Jeremías Dietrich - Attending Attestation I examined this patient and my medical decision-making was reviewed with the Resident Physician on 04/23/18. I agree with the documented findings, disposition and treatment plan as described except to the extent set forth below. Ms Paz is currently in observation for chest pain. She remains moderate to high risk at this time. Ms Paz is frustrated because her stress test is 2 part. No further chest pain since given nitro in ED. No SOB, no fever or chills. Feels hungry and awaiting lunch. Family at bedside. Exam alert Comfortable Mucus membranes dry Heart not tachy No wheeze Moves all extremities. I/P 1. Chest pain - multiple risk factors for CAD - family hx, DM, HTN, obesity, smoker, elevated cholesterol. Stress test in process. 2. DM 3. HTN Further diagnoses and plan as above. <Guanakito Duke - Last Filed: 04/23/18 13:10> (1) Chest pain Qualifiers: Chest pain type: other chest pain Qualified Code(s): R07.89 - Other chest pain (4) Diabetes mellitus Qualifiers: Diabetes mellitus type: type 2 Diabetes mellitus senior living insulin use: without senior living use Diabetes mellitus complication status: with unspecified complications Qualified Code(s): E11.8 - Type 2 diabetes mellitus with unspecified complications (5) Hypertension Qualifiers: Hypertension type: essential hypertension Qualified Code(s): I10 - Essential (primary) hypertension (6) GERD (gastroesophageal reflux disease) Qualifiers: Esophagitis presence: esophagitis presence not specified Qualified Code(s): K21.9 - Gastro-esophageal reflux disease without esophagitis (9) Hyperlipemia Qualifiers: Hyperlipidemia type: mixed hyperlipidemia Qualified Code(s): E78.2 - Mixed hyperlipidemia <Ronak Abernathy - Last Filed: 04/23/18 13:55> (1) Chest pain Qualifiers: Chest pain type: chest pain due to myocardial ischemia Qualified Code(s): I20.0 - Unstable angina (2) GERD (gastroesophageal reflux disease) Qualifiers: Esophagitis presence: esophagitis presence not specified Qualified Code(s): K21.9 - Gastro-esophageal reflux disease without esophagitis (3) Hypertension Qualifiers: Hypertension type: essential hypertension Qualified Code(s): I10 - Essential (primary) hypertension (5) Diabetes mellitus Qualifiers: Diabetes mellitus 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
[2018-04-24 05:06] LABS: Basophils % 0.8 %; Eosinophils # 0.1 K/mcL (0.0-0.6); Eosinophils % 1.8 %; Hematocrit 45.2 % (35.3-44.9); Immature Granulocytes % 0.2 % (0-4); Lymphocytes # 2.5 K/mcL (0.6-4.6); Lymphocytes % 48.7 %; Mean Corpuscular HGB Conc 33.2 g/dL (31.6-35.5); Mean Corpuscular Hemoglobin 29.2 pg (28.0-33.3); Mean Corpuscular Volume 88.1 fL (83.0-100.0); Mean Platelet Volume 9.9 fL (9.4-12.4); Monocytes # 0.3 K/mcL (0.0-1.3); Monocytes % 6.3 %; Neutrophils # 2.1 K/mcL (1.6-8.9); Platelet Count 200 K/mcL (140-400); Red Blood Count 5.13 M/mcL (3.82-4.97); Red Cell Distribution Width 12.3 % (11.5-14.5); Segmented Neutrophils % 42.2 %
[2018-04-24 05:25] LABS: BUN/Creatinine Ratio 21 (6-26); Blood Urea Nitrogen 11 mg/dL (6-20); Calcium 9.2 mg/dL (8.6-10.3); Carbon Dioxide 26 mEq/L (23-29); Chloride 105 mEq/L (98-107); Glucose 165 mg/dL (70-105); Osmolality,Calculated 285 (280-300); Potassium 4.2 mEq/L (3.5-5.1); Sodium 136 mEq/L (136-145); eGFR For Non-African Americans > 60 (> 60)
[2018-04-24] MEDS: *HR* Heparin 5,000 UNIT/ML VIAL SQ SCH (05:45)
[2018-04-24] MEDS: Insulin LISPRO 300 UNITS/3 ML VIAL SQ SCH ×3 (08:17→17:43)
[2018-04-24] MEDS: Aspirin 81 MG TAB.CHEW PO SCH (08:17)
--- NOTE | 2018-04-24 08:43 | Internal Med Progress Note ---
<Guanakito Duke - Last Filed: 04/24/18 11:29> Hospitalist Progress Note - Encounter Date of Encounter: 04/24/18 Time of Encounter: 10:00 - Subjective Interval History: No symptoms overnight. Had chest pain during first part of stress test yesterday. Part 2 of stress test this morning. Denies chest pain, sob, diaphoresis, N/V since. Wants to go home. - Exam Vitals: Temp Pulse Resp BP Pulse Ox 97.8 F 80 18 158/83 95 04/24/18 07:52 04/24/18 07:52 04/24/18 07:52 04/24/18 07:52 04/24/18 07:52 Exam: General: Alert, obese, no signs of acute distress or toxicity HEENT: Atraumatic, normocephalic, EOMi, mucus membranes moist Neck: Trachea midline Chest: Symmetric chest rise, nontender Cardiac: RRR, S1/S2+, no murmurs, rubs, gallops appreciated, 2+ R>L LE edema, radial pulses 2+ and symmetric Resp: Decreased air movement, scattered rhonchi and exp wheezing Abdomen: Soft, non tender, non distended, no guarding, rigidity, or rebound t enderness Extremities: normal inspection, tender to palpation R infrapatellar, normal cap refill Integumentary: [place], warm, dry, intact - Assessment and Plan (1) Chest pain Current Visit: Yes Status: Acute Assessment and Plan: Dull/heavy subxiphoid chest pain without radiation or associated symptoms that began 04/22/18 and was constant. Pain resolved with 1 sl nitro. Had previous cardiac workup "years" ago that was found to be not cardiac in origin. She has asymmetric leg pain/swelling R>L without prior DVT. -With her multiple risk factors cardiac origin is possible but I do not think it is cardiac at this point but will continue workup. -HEART score 4 -ECG in ED without acute st elevations/depressions, or t wave inversions -Asa in ED, will continue asa and statin -CXR neg -CTA neg for PE -Lipids elevated, LDL 138, HDL 40, TG 204, continue statin -Troponin x3 negative -Stress test today which was abnormal -Cardiology consulted for cath this afternoon. -Will need statin, antihypertensive, and antihyperglycemic at pa with outpatient followup. (2) Leg swelling Current Visit: Yes Status: Acute Assessment and Plan: Prior R knee operations and had increased pain and swelling of R LE > L LE -Asymmetric in size on exam R>L -No hx of DVT but multiple risk factors -R LE doppler neg for DVT (3) Asymmetric blood pressures Current Visit: Yes Status: Acute Assessment and Plan: Reported asymmetric BP in ED of 25 points. -CTA chest without abnormalities in ascending aorta, no aneurysm, dissection -Repeat bilat BP R 139/79, L 151/83 (4) Hypertension Current Visit: Yes Status: Chronic Assessment and Plan: Hx of HTN -Not on antihypertensives at home -BP 155/94 on arrival, 154/82 most recent -Will monitor (5) Tobacco abuse Current Visit: Yes Status: Chronic Assessment and Plan: 1ppd smoker -Recommend cessation at pa (6) Diabetes mellitus Current Visit: Yes Status: Chronic Assessment and Plan: Hx of DM -No home meds currently. -Was previously on metformin. -Insulin naive. -Glucose on arrival 210 -a1c 8.5 -Will continue low SSI and monitor glucose -Will need outpt followup at pa (7) DVT prophylaxis Current Visit: Yes Status: Acute Assessment and Plan: Subq heparin (8) Hyperlipemia Current Visit: Yes Status: Acute Assessment and Plan: Lipid panel LDL 138, HDL 40, TG 204, chol/HDL ratio 5.5. -Continue statin now and at pa. (9) GERD (gastroesophageal reflux disease) Current Visit: Yes Status: Chronic Assessment and Plan: Hx of GERD. Not on meds at this time. (10) Morbid obesity with BMI of 45.0-49.9, adult Current Visit: Yes Status: Chronic Assessment and Plan: BMI 45.1 -Recommend lifestyle modifications at pa DVT Prophylaxis: Subq heparin - Time Spent with Patient Total time spent is greater than 50% in coordination of care (as documented) at patient's floor/unit and/or counseling patient: less than 15 minutes Plan of Care Discussed with: patient Internal Medicine: Result - Labs CBC & Chem 7: 04/24/18 04:30 04/24/18 04:30 Labs: Short CBC 04/24/18 Range/Units 04:30 WBC 5.1 (4.3-11.1) K/mcL Hgb 15.0 (11.5-15.4) g/dL Hct 45.2 H (35.3-44.9) % Plt Count 200 (140-400) K/mcL Neutrophils # 2.1 (1.6-8.9) K/mcL BMP 04/24/18 04:30 Sodium 136 Potassium 4.2 Chloride 105 Carbon Dioxide 26 BUN 11 Creatinine 0.53 L Glucose 165 H Calcium 9.2 - ABG Interpretation ABG results: PT/INR, D-dimer PT 10.2 Seconds (9.4-12.1) 04/22/18 15:21 Consult Discharge Plan - Plan Instructions: Atorvastatin (By mouth), How to Stop Smoking (DC), Hyperlipidemia (DC) Additional Instructions: RISK FACTORS: STOP SMOKING: If you smoke, STOP. Smoking or tobacco use significantly increases your risk of heart disease because nicotine causes the arteries to narrow or constrict. It also causes fats to stick to the artery. Your chances of having a heart attack are greatly increased if you continue to smoke. For more information, call the education line for smoking cessation 4-487-AIYGORF EAT A LOW FAT/CHOLESTEROL/SODIUM DIET: This diet may help reduce your chances of having a heart attack. LIFTING: With affected extremity: Avoid bending, pushing off and lifting more than 2 pounds for 24 hours The following 48 hours, avoid lifting anything more than 5 pounds Avoid strenuous activity or repetitive motions ACTIVITY: You may walk or climb stairs as tolerated You can resume sexual activity as tolerated In general, you are encouraged to engage in a minimum of 30 minutes or more of moderate intensity physical activity, such as brisk walking, daily or at least 3-4 times weekly BATHING Do not submerge the site into water (bath tub, hot tub, swimming pool, dishes) for 1 week. This can be a source for infection into the blood stream. You may shower after 24 hours SITE CARE: After 24 hours, you may remove the dressing and leave the site open to air. Keep the site clean and dry. Clean gently and pat dry. You can expect bruising and tenderness that gradually resolve within a week or two. Return to work as instructed per your physician Resume driving as instructed per physician Keep all scheduled follow up appointments Resume medications as instructed IMPORTANT: If prescribed a Platelet Aggregation Inhibitor such as, Plavix, Brilinta or Effient: Duration of therapy is minimum one year These medications are often used in combination with Aspirin in prevention of future heart attacks Never discontinue unless consult with your Pumper Helper STROKE (CVA) Risk factors for a stroke are: Age, cigarette smoking, diabetes, excessive alcohol consumption, family history, high blood pressure, overweight, physical inactivity, prior stroke, heart attack, diagnosis of carotid artery stenosis or other artery disease. Warning signs: Sudden numbness or weakness of the face, arm or leg; especially on one side of the body, sudden confusion, trouble speaking or understanding, sudden trouble seeing in one or both eyes, sudden trouble walking, dizziness, loss of balance or coordination, sudden severe headache with no cause. Call 911 or go to the Emergency Room. CONGESTIVE HEART FAILURE: If you have been diagnosed with Congestive Heart Failure (CHF) and your symptoms return, make an appointment with your physician Weigh yourself daily. Notify your physician if you have a weight gain of two or more pounds in one day or five or more pounds in one week. If you experience any difficulty breathing, please call 911 BLEEDING: Although the risk of bleeding is minimal, it can happen. If you have any bleeding from the site, apply firm pressure above the puncture site for 10-15 minutes. If the bleeding does not stop, continue manual pressure and call 911 Contact [facility] ( ) if: You develop a fever greater than 101 degrees Fahrenheit Your site becomes reddened or has any drainage You have an increase in pain or burning at the site or if a large knot forms at the site. If you experience chest pain, shortness of breath, dizziness, or extreme tiredness, stop the activity and rest. Please notify [facility] office if you experience any of these symptoms and they are not relieved by rest please call 911! Referrals: Kj Smith MD [Primary Care Provider] - 05/01/18 11:00 am Prescriptions: Atorvastatin [Lipitor] 40 mg PO HS #30 tablet <Ronak Abernathy - Last Filed: 04/24/18 18:11> Hospitalist Progress Note - Exam Vitals: Temp Pulse Resp BP Pulse Ox 98.3 F 82 14 150/88 95 04/24/18 15:21 04/24/18 17:31 04/24/18 17:31 04/24/18 17:31 04/24/18 17:31 - Assessment and Plan (1) Chest pain Current Visit: Yes Status: Ruled-out (2) GERD (gastroesophageal reflux disease) Current Visit: Yes Status: Chronic (3) Hypertension Current Visit: Yes Status: Chronic (4) Tobacco abuse Current Visit: Yes Status: Chronic (5) Diabetes mellitus Current Visit: Yes Status: Chronic (6) Hyperlipemia Current Visit: Yes Status: Chronic (7) Morbid obesity with BMI of 45.0-49.9, adult Current Visit: Yes Status: Chronic - Time Spent with Patient Total time spent is greater than 50% in coordination of care (as documented) at patient's floor/unit and/or counseling patient: Internal Medicine: Result - Labs CBC & Chem 7: 04/24/18 04:30 04/24/18 04:30 Labs: Short CBC 04/24/18 Range/Units 04:30 WBC 5.1 (4.3-11.1) K/mcL Hgb 15.0 (11.5-15.4) g/dL Hct 45.2 H (35.3-44.9) % Plt Count 200 (140-400) K/mcL Neutrophils # 2.1 (1.6-8.9) K/mcL BMP 04/24/18 04:30 Sodium 136 Potassium 4.2 Chloride 105 Carbon Dioxide 26 BUN 11 Creatinine 0.53 L Glucose 165 H Calcium 9.2 - ABG Interpretation ABG results: PT/INR, D-dimer PT 10.2 Seconds (9.4-12.1) 04/22/18 15:21 - Attending Attestation See discharge summary of this date. <Guanakito Duke - Last Filed: 04/24/18 11:29> (1) Chest pain Qualifiers: Chest pain type: chest pain due to myocardial ischemia Qualified Code(s): I20.0 - Unstable angina (4) Hypertension Qualifiers: Hypertension type: essential hypertension Qualified Code(s): I10 - Essential (primary) hypertension (6) Diabetes mellitus Qualifiers: Diabetes mellitus type: type 2 Diabetes mellitus prison insulin use: wit hout gravity prospecting operator use Diabetes mellitus complication status: without complication Qualified Code(s): E11.9 - Type 2 diabetes mellitus without complications (8) Hyperlipemia Qualifiers: Hyperlipidemia type: mixed hyperlipidemia Qualified Code(s): E78.2 - Mixed hyperlipidemia (9) GERD (gastroesophageal reflux disease) Qualifiers: Esophagitis presence: esophagitis presence not specified Qualified Code(s): K21.9 - Gastro-esophageal reflux disease without esophagitis <Ronak Abernathy - Last Filed: 04/24/18 18:11> (1) Chest pain Qualifiers: Chest pain type: chest pain due to myocardial ischemia Qualified Code(s): I20.0 - Unstable angina (2) GERD (gastroesophageal reflux disease) Qualifiers: Esophagitis presence: esophagitis presence not specified Qualified Code(s): K21.9 - Gastro-esophageal reflux disease without esophagitis (3) Hypertension Qualifiers: Hypertension type: essential hypertension Qualified Code(s): I10 - Essential (primary) hypertension (5) Diabetes mellitus Qualifiers: Diabetes mellitus type: type 2 Diabetes mellitus gravity prospecting operator insulin use: without prison use Diabetes mellitus complication status: without complication Qualified Code(s): E11.9 - Type 2 diabetes mellitus without complications (6) Hyperlipemia Qualifiers: Hyperlipidemia type: mixed hyperlipidemia Qualified Code(s): E78.2 - Mixed hyperlipidemia
--- NOTE | 2018-04-24 13:25 | Cardiology Consult Note ---
<JonnySantos hinton R - Last Filed: 04/24/18 13:23> Date of Encounter: 04/24/18 Time of Encounter: 13:23 Assessment and Plan (1) Abnormal stress test Current Visit: Yes Status: Acute 2 day stress test showed mild reversible apical septal perfusion defect (SDS=2) with TID suggests ischemia. Stress LVEF 65%. No ischemic stress ECG findings. Josh lal had severe chest pain during stress test. Given abnormal stress test along with mulitple risk factors for CAD--HTN, HLD, DMII, family hx, tobacco abuse, obesity, recommend [facility]. R/B/A discussed. Pt agrees to proceed. [facility] today. Check TTE as well. Continue ASA and Statin. Start low dose BB. Continue to follow. (2) Chest pain Current Visit: Yes Status: Acute Presented with chest pain that was constant for 6 hours, relieved with SL nitro. Troponins negative. ECG unremarkable. Abnormal stress test as above. [facility] today. Qualifiers: Chest pain type: unspecified Qualified Code(s): R07.9 - Chest pain, unspecified (3) Tobacco abuse Current Visit: Yes Status: Chronic Smoking cessation counseling given. Discussion w patient/family: The assessment and plan as outlined above was discussed with the patient and/or family members who expressed understanding and agreement. All questions were answered. Thank you for involving us in the care of your patient. Please call with any questions. I will discuss all the above with Dr. Kee and make changes as necessary. History of Present Illness Consult date: 04/24/18 Consult reason: abnormal stress test Chief complaint: chest pain History of present illness: Ms. Paz is a 58 year old female with PMH of HTN, HLD, DMII, tobacco abuse, obesity that presented from home via EMS for evaluation of chest pain. Midsternal CP started when she was getting milk out of the fridge, described as subxiphoid, dull, heaviness. Nonradiating. Associated with intermittent dyspnea. Reports the chest pain was constant for 6 hours until she arrived in ED and was given nitro, which relieved her pain. Troponins negative. Stress test was ordered--resulted abnormal--mild reversible apical septal perfusion defect (SDS=2) with TID suggests ischemia. Stress LVEF 65%. No ischemic stress ECG findings. Patient had severe chest pain during stress test. Cardiology consulted for further recs. Past Med Surg Social Fam HX - Past Medical History Medical history: diabetes, GERD, hyperlipidemia, hypertension Psychiatric history: no psych history - Past Surgical History Surgical History: cholecystectomy - Social History Smoking Status: Current every day smoker Packs per day: 0.5-1 Smokeless Tobacco Status: No Alcohol use: none Drug use: none - Family History Father Hx Family Endocrine Disorder: Yes (DM) Mother Hx Family Cardiac Disorders: Yes (CHF) Hx Family Endocrine Disorder: Yes (DM) Medications and Allergies RX: No Known Home Drugs 04/22/18 [History] Allergy/AdvReac Type Severity Reaction Status Date / Time No Known Allergies Allergy Verified 03/11/18 10:30 All Systems Review: The remainder of the systems were reviewed and are negative - Cardiovascular Cardiovascular: as per HPI, chest pain at rest, chest pain with exertion, dyspnea on exertion - Respiratory Respiratory: dyspnea Physical Examination Vital Signs, Last 4 Hours Temp Pulse Resp BP Pulse Ox 04/24/18 11:54 98.1 F 73 18 135/83 94 Vital Signs Temp Pulse Resp BP Pulse Ox 04/24/18 11:54 98.1 F 73 18 135/83 94 04/24/18 09:00 154/82 04/24/18 07:52 97.8 F 80 18 158/83 95 04/24/18 03:19 97.8 F 77 14 140/84 95 04/23/18 23:45 98.5 F 67 16 122/72 94 04/23/18 19:18 98.1 F 77 16 106/70 94 04/23/18 15:09 98.3 F 80 16 132/82 95 Intake and Output 04/23/18 04/24/18 04/24/18 23:59 07:59 15:59 Intake Total 580 / 580 Output Total 100 / 100 600 / 600 Balance -100 / -100 -20 / -20 Intake: Oral 580 / 580 Output: Urine 100 / 100 600 / 600 Other: Meal Breakfast Percent of Meal Consumed 100% Weight 111.9 kg Blood Glucose* 216 150 146 Patient Weight 04/24/18 23:59 Weight 111.9 kg General: Conversant, No Apparent Distress HEENT: Atraumatic, Normocephaly, Mucus Membranes Moist Neck: No JVD, Normal carotid pulses Cardiac: Reg Rate and Rhythm, Normal S1 and S2, No Murmur Lungs: Other (coarse) Neuro: Alert and responsive, No focal deficits noted Abdomen: Soft, Non-Tender Skin: No rashes noted on visualized skin Musculoskeletal: No Chest Wall Tenderness Extremities: No Clubbing, No Cyanosis, No Edema, Normal Pulses Results 04/24/18 04:30 04/24/18 04:30 Lab Results 04/24/18 04/24/18 04:30 04:30 WBC 5.1 Hgb 15.0 Hct 45.2 H Plt Count 200 Sodium 136 Potassium 4.2 Chloride 105 Carbon Dioxide 26 BUN 11 Creatinine 0.53 L Glucose 165 H Calcium 9.2 Short CBC 04/24/18 Range/Units 04:30 WBC 5.1 (4.3-11.1) K/mcL Hgb 15.0 (11.5-15.4) g/dL Hct 45.2 H (35.3-44.9) % Plt Count 200 (140-400) K/mcL Neutrophils # 2.1 (1.6-8.9) K/mcL BMP 04/24/18 Range/Units 04:30 Sodium 136 (136-145) mEq/L Potassium 4.2 (3.5-5.1) mEq/L Chloride 105 (98-107) mEq/L Carbon Dioxide 26 (23-29) mEq/L BUN 11 (6-20) mg/dL Creatinine 0.53 L (0.60-1.20) mg/dL Glucose 165 H (70-105) mg/dL Calcium 9.2 (8.6-10.3) mg/dL Active Medications Aspirin (Aspirin) 81 mg PO DAILY PAVEL Stop: 10/23/18 09:01 Last Admin: 04/24/18 08:17 Dose: 81 mg Atorvastatin Calcium (Lipitor) 40 mg PO HS PAVEL Stop: 10/22/18 21:01 Last Admin: 04/23/18 21:02 Dose: 40 mg Dextrose/Water (Dextrose 50% (Syg)) 25 ml IVP AD PRN PRN Reason: Hypoglycemia Stop: 10/22/18 17:16 Glucagon (Glucagen) 1 mg IM ONCE PRN PRN Reason: Hypoglycemia Stop: 10/22/18 17:16 Glucose (Gluctose) 15 gm PO ONCE PRN PRN Reason: Hypoglycemia Stop: 10/22/18 17:16 Glucose (Gluctose) 30 gm PO ONCE PRN PRN Reason: Hypoglycemia Stop: 10/22/18 17:16 Heparin Sodium (Porcine) (Heparin) 5,000 unit SQ Q12HCO PAVEL Stop: 10/22/18 18:01 Last Admin: 04/24/18 05:45 Dose: 5,000 unit Dextrose (Dextrose 5%) 1,000 mls @ 100 mls/hr IVC .Q10H PRN PRN Reason: HYPOGLYCEMIA Stop: 10/22/18 17:16 Insulin Human Lispro (Humalog) 0 units SQ HS PAVEL; Protocol Stop: 10/22/18 21:01 Last Admin: 04/23/18 21:02 Dose: 2 units Insulin Human Lispro (Humalog) 0 units SQ TIDAC PAVEL; Protocol Stop: 10/22/18 17:31 Last Admin: 04/24/18 12:52 Dose: Not Given Nitroglycerin (Nitroglycerin) 0.4 mg SL Q5MIN PRN PRN Reason: Chest Pain Stop: 10/22/18 17:06 Ondansetron HCl (Zofran) 4 mg IVP Q6HR PRN; Protocol PRN Reason: Nausea Stop: 10/22/18 17:06 - Imaging and Cardiology Stress Test: report reviewed - EKG Interpretation EKG results cardiology: personally reviewed (SR) Consult Discharge Plan - Plan Referrals: Kj Smith MD [Primary Care Provider] - 05/01/18 11:00 am <Florence Kee - Last Filed: 04/24/18 14:28> - Attending Attestation I have personally performed a face to face evaluation on this patient. I have reviewed and agree with the care plan. History and Exam by me shows: 58-year-old female with multiple cardiac risk factors and abnormal stress test showing TID and a preserved ejection fraction presents due to chest pain retrosternal nonradiating. With multiple cardiac risk factors and abnormal stress test and LHC is reasonable. Risks benefits and alternatives discussed patient she agrees to proceed Assessment and Plan Discussion w patient/family: The assessment and plan as outlined above was discussed with the patient and/or family members who expressed understanding and agreement. All questions were an swered. Thank you for involving us in the care of your patient. Please call with any questions. History of Present Illness History of present illness: Ms. Paz is a 58 year old female All Systems Review: The remainder of the systems were reviewed and are negative Physical Examination Vital Signs, Last 4 Hours Temp Pulse Resp BP Pulse Ox 04/24/18 11:54 98.1 F 73 18 135/83 94 Results 04/24/18 04:30 04/24/18 04:30 Lab Results 04/24/18 04/24/18 04:30 04:30 WBC 5.1 Hgb 15.0 Hct 45.2 H Plt Count 200 Sodium 136 Potassium 4.2 Chloride 105 Carbon Dioxide 26 BUN 11 Creatinine 0.53 L Glucose 165 H Calcium 9.2
[2018-04-24] MEDS ORDERED: 0.9 % Sodium Chloride 1,000 ML ONE (13:50)
[2018-04-24] MEDS ORDERED: *HR* Heparin 10,000 UNIT/10 ML VIAL ONE (13:50)
[2018-04-24] MEDS ORDERED: Heparin 1,000 UNITS/500 mL 500 ML ONE (13:50)
[2018-04-24] MEDS ORDERED: Nitroglycerin 1,000 MCG/10 ML VIAL IV ONE (13:50)
[2018-04-24] MEDS ORDERED: ISOVUE-370 200 ML INFUS..BTL ONE (13:50)
--- NOTE | 2018-04-24 14:09 | Pre-Sedation Evaluation ---
Pre-sedation evaluation - Pre-sedation checklist Date of procedure: 04/24/18 Procedure: [facility] Recent Vitals: Last Vital Signs Temp 98.1 F 04/24/18 11:54 Pulse 73 04/24/18 11:54 Resp 18 04/24/18 11:54 BP 135/83 04/24/18 11:54 Pulse Ox 94 04/24/18 11:54 H&P (including ROS) documented in medical record: Yes Previous reaction to sedatives/anesthetics: No Dietary Status: NPO after Midnight Airway Assessment: Patient can open mouth completely, TMJ function normal ASA Classification *see protocol: CLASS II-Mild systemic disease Plan of Care: Pt appropriate candidate for procedure/moderate/conscious sedation, Risks/benefits of procedure/sedation discussed w/ patient/family Cardiac Registry (Cardio Only) - Functional Capacity Functional Capacity: >=4 METS with symptoms
[2018-04-24] MEDS ORDERED: *HR* FentaNYL (PF) 100 MCG/2 ML VIAL ONE (14:47)
[2018-04-24] MEDS ORDERED: *HR* Midazolam HCl 2 MG/2 ML VIAL ONE (14:47)
[2018-04-24] MEDS ORDERED: Verapamil 5 MG/2 ML VIAL ONE (14:47)
--- NOTE | 2018-04-24 15:20 | Event Note ---
Date of Encounter: 04/24/18 Time of Encounter: 15:19 - Cardiology Event Note Discussed and reviewed with who states mild, non-obstructive CAD per [facility]. Recommend aggressive risk factor modification. Cardiology will sign off.
--- NOTE | 2018-04-24 15:23 | Invasive Diagnostic Lab Proc ---
Name: Yaz Paz Date of Study: 04/24/2018 Date: 1960 Ht: 61.0in Medical Record#: [id number] Age: 58 Wt: 247.36lb Gender: Female BSA: 2.07 Order #: [id number] BMI: 46.76 Physicians Procedure Physician: Ruperto Peters MD, FACC Referring MD: Referring MD: Staff Name [facility] 02:56 PM Joy Powell RN CO 02:56 PM Joy Powell RN Formula Mixer 02:57 PM Samira Cordero RT (R) Scrub 02:57 PM Indications Indication Abnormal Test - Stress Procedures Performed Procedure L HRT ARTERY/VENTRICLE ANGIO Pre-Procedure Checklist Informed consent is complete signed and on chart. H&P is on chart. ID band is on and ID verified with patient. Patient NPO for procedure The procedure was described for the patient and questions were answered. Blood Pressure: 156/114 ECG is on chart. Rhythm: NSR Plan of Care Patient will tolerate the procedure without complications. Adequate level of comfort will be maintained. Hemodynamics will remain stable Patient will recover from procedure without complications. Respiratory function will be maintained. Cardiac rhythm will remain stable. Patient temperature will be maintained. Patient and/or family have verbalized understanding of the procedure. Patient Education Chief Complaint/Reason for Test: Cardiac Cath Developmental Category: Adult (18-64 years) Developmentally Appropriate for Age: Yes Learning Barriers: None Education Needs: Procedure Education Method: Verbal Information Taught: Cardiac Cath Educational Evaluation: Able to repeat information Intravenous Access Time IV Size Location DC'd Fluid/Drip Rate Units RN 02:04 PM 20g 1 1/4" Patent On Arrival Rt Wrist 0.9NaCl 25 ml/hr Aliza Alvarez RN 02:04 PM 20g 1 1/4" Patent On Arrival Rt Antecubital Allergies NKDA Vital Signs Time BP (mmHg) HR (bpm) O2 Sat. RR (bpm) LOC 03:04 PM / % 5 = Fully awake and oriented or at pre-proc level 02:51 PM 177 / 106 72 98 % 30 02:56 PM 167 / 101 79 98 % 14 03:01 PM 171 / 97 75 97 % 23 03:06 PM 143 / 98 86 92 % 22 03:11 PM 149 / 90 88 92 % 15 Procedural Medications Time Medication Dose Units Method Given By 03:04 PM Oxygen 2 L/min nasal cannula Joy Powell RN 03:04 PM Versed 2 mg Intravenous Joy Powell RN 03:04 PM Fentanyl 50 mcg Intravenous Joy Powell RN 03:04 PM Lidocaine 2% 0.5 ml Subcutaneous [facility]to Peters MD, [facility] 03:05 PM Heparin 4000 units Nitroglycerin 200 mcg Verapamil 2.5 mg Intraarterial Ruperto Peters MD, [facility] ASA Classification: CLASS II- Mild systemic disease (i.e. well-controlled diabetes, hypertension, asthma, cigarette smoking) Erin Score Preprocedure Postprocedure Activity 2- Moves 4 extremities sustained head lift Activity 2- Moves 4 extremities sustained head lift Circulation 2- SBP +/= 20 points of pre-anesthetic level Circulation 2- SBP +/= 20 points of pre-anesthetic level Consciousness 2- Awake and alert oriented x 3 Consciousness 2- Awake and alert oriented x 3 O2 Saturation 2- Able to maintain O2 satruation of 92% on room air O2 Saturation 2- Able to maintain O2 satruation of 92% on room air Respiratory 2- Able to deep breathe and cough well Respiratory 2- Able to deep breathe and cough well Total Score 10 Total Score 10 Contrast Agent: Isovue Diagnostic Contrast: 49 ml Total Contrast: 49 ml Fluoro Dose: 17 mGy Procedure Log Time Note Enter By 02:50 PM CathStat 02:50 PM Vitals capture started with the following parameters, Patient=Adult, Interval=5 min, Initial Ldovormj=361 mmHg, Deflation Rate=3 mmHg, Cuff placed on Right Arm 02:51 PM HR=72 bpm, TTNJ=285/106 mmhg, SpO2=98.0 %, Resp=30 B/min, EtCO2=38 mmHg, Comment=NSR 02:56 PM HR=79 bpm, GRIW=244/101 mmhg, SpO2=98.0 %, Resp=14 B/min, EtCO2=38 mmHg, Comment=NSR 02:56 PM 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 03:03 PM [facility] 03[facility]03 PM Sign in performed according to hospital policy. Informed consent was obtained. tsoumm 03:03 PM Procedure start 15:03 tsoummers 03:03 PM ASA Class CLASS II- Mild systemic disease (i.e. well-controlled diabetes, hypertension, asthma, cigarette smoking) tsoumm 03:04 PM Time: 15:04 Oxygen on at 2 L/min per nasal cannula by Joy Powell RN [facility] 03:04 PM Time: 15:04 Versed 2 mg Intravenous Given by Joy Powell RN [facility] 03:04 PM Time: 15:04 Fentanyl 50 mcg Intravenous [facility] 03:04 PM Time: 15:04 Patient comfortable and pain free: Yes oumm 03:04 PM Time: 15:04LOC: 5 = Fully awake and oriented or at pre-proc level tsoumm 03:04 PM Hair removed from procedure site in procedure lab using clippers. Right wrist & rt groin prepped with Chloraprep by Azucena Fulton RN, then patient was draped. Skin intact. tsoumm 03:04 PM Time out was performed according to hospital policy. Conscious sedation and anesthesia was achieved (see medication log with in this report above) tsoummers 03:04 PM Time: 15:04 0.5 ml Lidocaine 2% to right radial Subcutaneous Given by Ruperto Peters MD, FACC tsoummers 03:05 PM Time: 15:05 Patient given 4,000 units Heparin, 200 mcg Nitroglycerin, and 2.5 mg Verapamil Intraarterial by Ruperto Peters MD, FACC. This is given to reduce risk of vessel spasm and thrombosis. tsoummers 03:05 PM 0.035 260cm Navilyst 3mmJ wire [id number] tsoummers 03:05 PM 5Fr TIG catheter inserted over the wire [facility] tsoummers 03:05 PM wire removed tsoummers 03:05 PM LCA angiography performed in multiple views. tsoummers 03:06 PM HR=86 bpm, QJJE=536/98 mmhg, SpO2=92.0 %, Resp=22 B/min, EtCO2=37 mmHg, Comment=NSR 03:06 PM Recorded Pressure: Ao, HR=87, Condition=Condition 1 (Aorta) Ao 118/79/97 03:07 PM Lesion found in Proximal LAD. Pre Stenosis: 20 Pre BEV Flow: tsoummers 03:07 PM Proximal Left Anterior Descending Coronary Artery with 20% stenosis. If graft is supplying this territory, 0 % stenosis. tsoummers 03:07 PM RCA angiography performed in multiple views. tsoummers 03:07 PM Coronary Dominance: right tsoummers 03:08 PM Lesion found in Mid RCA. Pre Stenosis: 20 Pre BEV Flow: tsoummers 03:08 PM Lesion found in Distal RCA. Pre Stenosis: 20 Pre BEV Flow: tsoummers 03:08 PM Right Coronary, Right Posterior Descending Arteries with Right Posterolateral and Acute Marginal branches with 20 % stenosis. If graft is supplying this area, 0 % stenosis tsoummers 03:08 PM Catheter removed tsoummers 03:08 PM 5Fr Pigtail catheter inserted over the wire [facility] tsoummers 03:08 PM Catheter crossed the aortic valve and was selectively placed in the left ventricle. Pressures recorded on pullback for left heart catheterization. tsoummers 03:09 PM Bolus angiogram of left Ventricle complete: 10 ml/sec for a total of 25 mls tsoummers 03:10 PM Pressure channel 1 zeroed. 03:10 PM Recorded Pressure: LV, HR=91, Condition=Condition 1 (Left Ventricle) LV 162/5/19 03:10 PM Recorded Pressure: LV, Ao, HR=90, Condition=Condition 1 (Left Ventricle) LV 158/8/20, (Aorta) Ao 159/95/124 03:11 PM HR=88 bpm, SVQE=294/90 mmhg, SpO2=92.0 %, Resp=15 B/min, EtCO2=41 mmHg, Comment=NSR 03:11 PM Catheter removed tsoummers 03:11 PM Procedure completed at 15:11 04/24/2018 tsoummers 03:11 PM Did you address BEV flow and Dominance? Yes tsoummers 03:12 PM Sign out completed: Radiation Dose 176.91 mGy, 16.5174 Gy/cm2 Fluoro Time: 1.1 Isovue 370 - 200ml contrast 49 ml given by Ruperto Peters MD, [facility]. Complications: None. 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 Cardiac Rehab Consult needed: NoConfirmed administered medications: Yes oummers 03:12 PM Isovue 370 - 200ml,1 Bottle(s) used. tsoummers 03:13 PM Arterial sheath pulled, Vasc Band closure device used and was Successful S/N. tsoummers 03:13 PM 8 ml air in Vasc Band. tsoummers 03:13 PM Estimated Blood Loss: less than 20cc tsoummers 03:13 PM Post ECG NSR tsoummers 03:13 PM Post Blood Pressure 149/90 tsoummers 03:13 PM 15:13 Post Pulses Rt Radial 1+ tsoummers 03:13 PM Information taught Cardiac Cath and Vasc Band tsoummers 03:13 PM Education needs Procedure, Plan of Care, and Responsibilities of Patient in Care tsoummers 03:13 PM Learning barriers :None tsoummers 03:13 PM Education Methods Verbal tsoumm 03:13 PM Education evaluation Able to repeat information tsoummers 03:13 PM Site status No bleeding/hematoma - Rt Wrist as reported by Samira Cordero RT (R) at 15:13 tsoummers 03:14 PM Report given to Alden RIVERS Pt taken to 3B Room #16. 15:14 tsoummers 03:14 PM Plavix, Effient or Brilinta given No tsoummers 03:14 PM Delay to floor No tsoummers 03:14 PM Family placed in consult room. tsoummers 03:14 PM Complications: None tsoummers 03:14 PM Patient out of room: 15:14 tsoummers Complications Complication None None Hemodynamics Pressures Site Systolic/A Wave Diastolic/V Wave Mean AO 118 79 97 LV 162 5 19 LV 158 8 20 AO 159 95 124 Post Procedure Information Blood Pressure: 149/90 mmHg Rhythm: NSR Post procedural instructions were given Closure Device Time Device Success/Fail 04/24/2018 3:14:00 PM Mechanical Compression Successful Site Checks Time Location Status Staff Sheath In? Note 03:13 PM Rt Wrist No bleeding/hematoma Samira Cordero RT (R) Pulses Time Site Pre-Procedure Post-Procedure Note 04/24/2018 2:04:00 PM Bilateral DP & PT 1+ 04/24/2018 2:04:00 PM Bilateral radial 2+ 3:13:00 PM Rt Radial 1+ Updated by Azucena Fulton RN on 04/24/2018 3:15:44 PM electronically signed on 04/24/2018 3:16:10 PM with status of Final
--- NOTE | 2018-04-24 17:02 | Discharge Summary ---
- NOTES TO OUTPATIENT PROVIDER Notes to Outpatient Provider: Presented with chest pain relieved with nitro. Multiple risk factors. Had stress which was positive. Cath today with minimal CAD. Needs risk factor modification. Will need diabetes and blood pressure addressed as outpatient. Started on statin and ASA. Orders not resulted at time of discharge: Pending orders 04/23/18 09:05 NM gordo perf SPECT multi [NM] Routine 04/24/18 13:32 CL Cardiac Catheterization [CL] Routine 04/24/18 13:33 EV echocardiogram Routine 04/25/18 04:00 BMP [Basic Metabolic Panel] AM 0400 Date of Encounter: 04/24/18 Time of Encounter: 17:01 - Discharge Diagnosis (1) Chest pain Priority: Primary Status: Ruled-out Qualifiers: Chest pain type: chest pain due to myocardial ischemia Qualified Code(s): I20.0 - Unstable angina (2) GERD (gastroesophageal reflux disease) Priority: Secondary Status: Chronic Qualifiers: Esophagitis presence: esophagitis presence not specified Qualified Code(s): K21.9 - Gastro-esophageal reflux disease without esophagitis (3) Hypertension Priority: Secondary Status: Chronic Qualifiers: Hypertension type: essential hypertension Qualified Code(s): I10 - Essential (primary) hypertension (4) Tobacco abuse Priority: Secondary Status: Chronic (5) Diabetes mellitus Priority: Secondary Status: Chronic Qualifiers: Diabetes mellitus type: type 2 Diabetes mellitus mcc insulin use: without credit report checker use Diabetes mellitus complication status: without complication Qualified Code(s): E11.9 - Type 2 diabetes mellitus without complications (6) Hyperlipemia Priority: Secondary Status: Chronic Qualifiers: Hyperlipidemia type: mixed hyperlipidemia Qualified Code(s): E78.2 - Mixed hyperlipidemia (7) Morbid obesity with BMI of 45.0-49.9, adult Priority: Secondary Status: Chronic Hospital course: Ms. Paz is a 58 year old female with hx of DM on no meds presented to ED with chest pain. Relieved with nitro. Placed in observation. Ms Paz was placed in observation for chest pain. She was asymptomatic after admission. She had negative troponins. Stress test was positive. Had LHC with minimal CAD. Needs risk factor modification. Discharge discussed with: patient, family Time spent discussing smoking cessation with patient: 3 to 10 minutes - Time Spent with Patient Total time spent providing and/or coordinating discharge services: - Discharge Medications Prescriptions: Atorvastatin [Lipitor] 40 mg PO HS #30 tablet Home Medications: Aspirin 81 mg PO DAILY tab.chew 04/24/18 [Rx] Atorvastatin [Lipitor] 40 mg PO HS #30 tablet 04/24/18 [Rx] Allergies/Adverse Reactions: Allergy/AdvReac Type Severity Reaction Status Date / Time No Known Allergies Allergy Verified 03/11/18 10:30 Date of admission: 04/22/18 17:08 Primary care physician: Kj Smith MD Consults: 04/24/18 11:02 Consult to Cardiology [CONS] Routine Comment: Consulting Provider: Cardiology [facility] Reason for Consult: Abnormal stress test this morning Time Notified: 11:04 Call Completed: Yes Discharging clinician: Ronak Abernathy Anticipated date of discharge: 04/24/18 - Constitutional Vitals: Temp Pulse Resp BP Pulse Ox 98.3 F 80 14 133/77 95 04/24/18 15:21 04/24/18 16:25 04/24/18 16:25 04/24/18 16:25 04/24/18 16:25 General appearance: Present: A&O X 3, pleasant, obese Exam: See below - Head Head exam: Present: normocephalic - Eye Eye exam: Present: EOMI, conjuntiva pink - ENT ENT exam: Present: mucous membranes moist - Respiratory Respiratory exam: Present: CTAB. Absent: rales, rhonchi, wheezes - Cardiovascular Cardiovascular exam: Present: RRR. Absent: tachycardia - GI/Abdominal GI/Abdominal exam: Present: soft. Absent: tenderness - Extremities Exam Extremities exam: Present: warm. Absent: tenderness - Neurological Exam Neurological exam: Present: alert, oriented X3, no focal deficits - Skin Skin exam: Present: dry, warm - Patient Status Disposition: Home, Self-Care Condition: Good Functional capacity at discharge: independent ambulation Overall status at discharge: patient is progressing back to baseline - Discharge Instructions Instructions: Atorvastatin (By mouth), How to Stop Smoking (DC), Hyperlipidemia (DC) Follow Up With: Kj Smith MD [Primary Care Provider] - 05/01/18 11:00 am Additional Instructions: RISK FACTORS: STOP SMOKING: If you smoke, STOP. Smoking or tobacco use significantly increases your risk of heart disease because nicotine causes the arteries to narrow or constrict. It also causes fats to stick to the artery. Your chances of having a heart attack are greatly increased if you continue to smoke. For more information, call the education line for smoking cessation 9-386-BDGLKZM EAT A LOW FAT/CHOLESTEROL/SODIUM DIET: This diet may help reduce your chances of having a heart attack. LIFTING: With affected extremity: Avoid bending, pushing off and lifting more than 2 p ounds for 24 hours The following 48 hours, avoid lifting anything more than 5 pounds Avoid strenuous activity or repetitive motions ACTIVITY: You may walk or climb stairs as tolerated You can resume sexual activity as tolerated In general, you are encouraged to engage in a minimum of 30 minutes or more of moderate intensity physical activity, such as brisk walking, daily or at least 3-4 times weekly BATHING Do not submerge the site into water (bath tub, hot tub, swimming pool, dishes) for 1 week. This can be a source for infection into the blood stream. You may shower after 24 hours SITE CARE: After 24 hours, you may remove the dressing and leave the site open to air. Keep the site clean and dry. Clean gently and pat dry. You can expect bruising and tenderness that gradually resolve within a week or two. Return to work as instructed per your physician Resume driving as instructed per physician Keep all scheduled follow up appointments Resume medications as instructed IMPORTANT: If prescribed a Platelet Aggregation Inhibitor such as, Plavix, Brilinta or Effient: Duration of therapy is minimum one year These medications are often used in combination with Aspirin in prevention of future heart attacks Never discontinue unless consult with your Pizza Chef STROKE (CVA) Risk factors for a stroke are: Age, cigarette smoking, diabetes, excessive alcohol consumption, family history, high blood pressure, overweight, physical inactivity, prior stroke, heart attack, diagnosis of carotid artery stenosis or other artery disease. Warning signs: Sudden numbness or weakness of the face, arm or leg; especially on one side of the body, sudden confusion, trouble speaking or understanding, sudden trouble seeing in one or both eyes, sudden trouble walking, dizziness, loss of balance or coordination, sudden severe headache with no cause. Call 911 or go to the Emergency Room. CONGESTIVE HEART FAILURE: If you have been diagnosed with Congestive Heart Failure (CHF) and your symptoms return, make an appointment with your physician Weigh yourself daily. Notify your physician if you have a weight gain of two or more pounds in one day or five or more pounds in one week. If you experience any difficulty breathing, please call 911 BLEEDING: Although the risk of bleeding is minimal, it can happen. If you have any bleeding from the site, apply firm pressure above the puncture site for 10-15 minutes. If the bleeding does not stop, continue manual pressure and call 911 Contact [facility] ( ) if: You develop a fever greater than 101 degrees Fahrenheit Your site becomes reddened or has any drainage You have an increase in pain or burning at the site or if a large knot forms at the site. If you experience chest pain, shortness of breath, dizziness, or extreme tiredness, stop the activity and rest. Please notify [facility] office if you experience any of these symptoms and they are not relieved by rest please call 911! - Diet and Activity Activity: increase activity as tolerated Diet: diabetic diet, low fat, low cholesterol
[2018-04-24 17:32] VITALS: BP 150/88
--- NOTE | 2018-04-26 16:04 | Electrocardiograph Report ---
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
--- NOTE | 2018-04-27 19:12 | Electrocardiograph Report ---
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
== END 2018-04-24 18:40 | disposition home or self-care (01) ==
LOC: EMEROOARM 15:11 → 3BNU 15:11 → SUATTDRO 17:08 → 3BNU 18:40
PROVIDERS: ADMIT Internal Medicine Nephrology; ATTEND Internal Medicine